=== PATIENT | female | born 1990 | race Two or more races ===

== ENCOUNTER 2024-10-13 09:27 | Emergency (ER) | payer MEDICAID, OTHER ==
[~2024-10-13] VITALS: Ht 154.9 cm; Wt 104.0 kg
--- NOTE | 2024-10-13 10:08 | ED.PDOC ---
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 Patient states, that she has been experiencing abnormal vaginal bleeding [id number]. Patient relays, that she had an IUD that was placed in 2019 and has experienced heavy menstrual cycles since. Patient comments that she has had periods of heavy bleeding outside of her regular menstruation frame; bleeding three times within the last 2 months. Patient states, that she has made an appointment to remove the IUD however it is always rescheduled. Patient denies social history. Patient denies hematuria, dysuria, abdominal pain, or N/V/D. 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 Hx Family History Family History: Unknown Social History Smoker: Non-Smoker Alcohol: Denies ETOH Use Drugs: Denies Drug Use Lives In: Home Constitutional: denies: chills, diaphoresis, fatigue, fever, malaise, sweats, weakness, others EENTM: denies: blurred vision, double vision, ear bleeding, ear discharge, ear drainage, ear pain, ear ringing, eye pain, eye redness, hearing loss, mouth pain, mouth swelling, nasal discharge, nose bleeding, nose congestion, nose pain, photophobia, tearing, throat pain, throat swelling, voice changes, others Respiratory: denies: cough, hemoptysis, orthopnea, SOB at rest, shortness of breath, SOB with excertion, stridor, wheezing, others Cardiovascular: denies: chest pain, dizzy spells, diaphoresis, Dyspnea on exertion, edema, irregular heart beat, left arm pain, lightheadedness, palpitations, PND, syncope, others Gastrointestinal: denies: abdomen distended, abdominal pain, blood streaked bowels, constipated, diarrhea, dysphagia, difficulty swallowing, hematemesis, melena, nausea, poor appetite, poor fluid intake, rectal bleeding, rectal pain, vomiting, others Genitourinary: reports: abnormal vagina bleeding; denies: burning, dyspareunia, dysuria, flank pain, frequency, hematuria, incontinence, pain, , vagina discharge, urgency, others Neurological: denies: dizziness, fainting, headache, left sided numbness, left sided weakness, numbness, paresthesia, pre-existing deficit, right sided numbness, right sided weakness, seizure, speech problems, tingling, tremors, weakness, others Musculoskeletal: denies: back pain, gout, joint pain, joint swelling, muscle pain, muscle stiffness, neck pain, others Integumetry: denies: bruises, change in color, change in hair/nails, dryness, laceration, lesions, lumps, rash, wounds, others Allergic/Immunocompromised: denies: Difficulty Healing, Frequent Infections, Hives, Itching, others Hematologic/Lymphatic: denies: anemia, blood clots, easy bleeding, easy bruising, swollen glands, others Endocrine: denies: excessive hunger, excessive sweating, excessive thirst, excessive urination, flushing, intolerance to cold, intolerance to heat, unexplained weight gain, unexplained weight loss, others Psychiatric: denies: anxiety, bipolar disorder, depression, hopeless, panic disorder, schizophrenia, sleepless, suicidal, others All Other Systems: Reviewed and Negative Physical Exam General Appearance: Moderate Distress HEENT: Normal ENT Inspection, Pharynx Normal, TMs Normal Neck: Full Range of Motion, Non-Tender, Normal, Normal Inspection Respiratory: Chest Non-Tender, Lungs Clear, No Accessory Muscle Use, No Respiratory Distress, Normal Breath Sounds Cardiovascular: No Edema, No JVD, No Murmur, No Gallop, Normal Peripheral Pulses, Regular Rate/Rhythm Breast Exam: Deferred Gastrointestinal: No Organomegaly, Non Tender, No Pulsatile Mass, Normal Bowel Sounds, Soft Genitalia: Deferred Pelvic: Deferred Rectal: Deferred Extremities: No calf tenderness, Normal capillary refill, Normal inspection, Normal range of motion, Non-tender, No pedal edema Musculoskeletal : Apperance: Normal Neurologic: Alert, director of retail II-XII nml as Tested, No Motor Deficits, Normal Affect, Normal Mood, No Sensory Deficits Cerebellar Function: Normal Reflexes: Normal Skin: Dry, Normal Color, Warm Peripheral Pulses: 3+ Radial (R), 3+ Radial (L) Lymphatic: No Adenopathy Was a procedure done? Was a procedure done?: No Differential Diagnosis (LOGISTICS PLANNING ENGINEER) Vaginal Bleeding: Dysmenorrhea, Menorrhagia, Menometrorrhagia, Menstrual Bleeding, UTI, Vaginitis X-Ray, Labs, Meds, VS Vital Signs Date Time Temp Pulse Resp B/P (MAP) Pulse Ox O2 Delivery O2 Flow Rate FiO2 10/13/24 16:00 86 16 136/76 (96) 97 10/13/24 11:57 98.7 83 16 134/85 (101) 100 98.7 10/13/24 10:53 Room Air* 0 21 10/13/24 10:00 90 14 134/76 (95) 100 10/13/24 09:39 98.4 85 18 176/105 (128) 98 Lab Test 10/13/24 09:45 Range/Units Urine Color Colorless Yellow Urine Clarity Clear Clear Urine pH 5.0 5.0-9.0 Urine Specific [place] 1.006 1.001-1.035 Urine Protein Negative Negative Urine Ketones Negative Negative Urine Blood 3+ H Negative /uL Urine Nitrite Negative Negative Urine Bilirubin Negative Negative Urine Urobilinogen Normal Negative mg/dL Urine Leukocyte Esterase Negative Negative /uL Urine RBC 1 0 - 4 /hpf Urine Microscopic WBC 2 0-5 /HPF Urine Squamous Epithelial Cells Few <5 /hpf Urine Bacteria None seen None Seen /hpf Urine Glucose Normal Normal mg/dL Urine Test Negative Negative Patient alert. Anxious. Complaining of vaginal bleeding. Vitals stable. Blood pressure elevated possibly from anxiety. Does not have a history of high blood pressure. Saturation pristine on room air. She does have an IUD causing excess menstrual cycle. Spoke with Dr. Sweet and her recommendation is to follow up with her in the morning. Explained to the patient. Was told to follow up with her OBGYN. Was told to follow up with her primary care physician. Was told to come back there is any problem. Time of 1ST Reevaluation: 10:30 Reevaluation 1ST: Improved Patient Education/Counseling: Diagnosis, Treatment Family Education/Counseling: No Family Present Departure 1 Departure Time of Disposition: 10:16 Impression: Primary Impression: Vaginal bleeding Disposition: 01 HOME / SELF CARE / HOMELESS Condition: Good Discharged With: Self Critical Care Note Critical Care Time?: No Stability Stability form required: No Heart Score Heart Score: Heart Score Response (Comments) Value History N/A 0 EKG N/A 0 Age N/A 0 Risk Factors N/A 0 Troponin N/A 0 Total 0 I personally scribed for LIDIA MCKNIGHT MD ([email or web address]) on 10/13/24 at 10:08. Electronically submitted by Melvi Chisholm ([email or web address]). LIDIA MCKNIGHT MD Oct 13, 2024 10:08
[2024-10-13 11:01] LABS: Urine Bacteria None Seen /hpf (None Seen)
[2024-10-13 11:23] LABS: Urine Blood 3+ /uL (Negative); Urine Clarity Clear (Clear); Urine Color Colorless (Yellow); Urine Protein, UAD Negative (Negative); Urine Specific Gravity 1.006 (1.001-1.035); Urine Squamous Epithelial Cell FEW /hpf (<5); Urine Urobilinogen Normal (Negative); Urine WBC 2 /HPF (0-5)
--- NOTE | 2024-10-13 16:34 | DVH ---
EXAM: US PELVIC CLINICAL HISTORY: VAG BLEED TECHNIQUE: Transabdominal and transvaginal ultrasound of the pelvis with color Doppler flow as clinic ally indicated. COMPARISON: None Findings: Same-day quantitative beta-hCG is not available. Uterus measures 11.4 x 5.5 x 4.4 cm in size with relatively homogeneous echotexture and normal contou rs. Endometrial thickness measures 0.3 cm with smooth contour. Cervix appears grossly unremarkable. IUD is noted near the cervix. Right ovary measures 7.4 x 6.5 x 7.6 cm. 5.9 x 5.8 x 5.2 cm anechoic lesion in the right ovary. Left ovary measures 2.2 x 1.6 x 1.6 cm. Normal ovarian color Doppler flow to the bilateral ovaries. No free fluid in the cul-de-sac. Impression: 1. Uterus grossly unremarkable with endometrial thickness of 0.3 cm. 2. Intrauterine device is noted near the cervix. Recommend direct visualization. 3. Bilateral ovaries within normal limits with normal color flow. 4. 5.9 cm right ovarian cyst. Recommend follow up ultrasoundin 8-12 weeks, per ORADS criteria.
[2024-10-13 19:00] VITALS: BP 130/72; PULSE 80; RESP 20; TEMP 98; O2SAT 98
== END 2024-10-13 19:33 | disposition home or self-care (01) ==
LOC: ER 09:27
DX: N93.9 Abnormal uterine and vaginal bleeding, unspecified (principal); Z98.890 Other specified postprocedural states
CPT/HCPCS: 76817; 76856; 81001; 81025